=== PATIENT | female | born 1975 | race Caucasian/White ===

== ENCOUNTER 2018-01-16 21:04 | Emergency (ER) | payer SELFPAY ==
[~2018-01-16] VITALS: Ht 167.6 cm; Wt 63.0 kg
[2018-01-16 21:23] VITALS: BP 128/70
[2018-01-16 22:14] LABS: CHLORIDE 106 mEq/L (98-107)
== END 2018-01-17 00:25 | disposition home or self-care (01) ==
LOC: ER 21:04
DX: E16.2 Hypoglycemia, unspecified (principal); K72.90 Hepatic failure, unspecified without coma; F17.200 Nicotine dependence, unspecified, uncomplicated; F12.10 Cannabis abuse, uncomplicated; Z94.4 Liver transplant status; Z79.4 Long term (current) use of insulin
CPT/HCPCS: 36415; 80048; 82962; 99283